=== PATIENT | male | born 1950 ===

== ENCOUNTER → 2021-11-28 | Outpatient (CLI) | payer MEDICARE, MEDICAID ==
[2021-11-28 14:20] VITALS: BP 89/50
== END | disposition home or self-care (01) ==
LOC: SRCNTR 14:00
PROVIDERS: ATTEND Internal Medicine
DX: I11.0 Hypertensive heart disease with heart failure (principal); I50.22 Chronic systolic (congestive) heart failure; I42.9 Cardiomyopathy, unspecified; I47.2 Ventricular tachycardia; I44.7 Left bundle-branch block, unspecified; F03.90 Unspecified dementia, unspecified severity, without behavioral disturbance, psychotic disturbance, mood disturbance, and anxiety; Z86.73 Personal history of transient ischemic attack (TIA), and cerebral infarction without residual deficits; R94.31 Abnormal electrocardiogram [ECG] [EKG]; Z79.899 Other long term (current) drug therapy; Z79.82 Long term (current) use of aspirin
CPT/HCPCS: 93005; G0463

== ENCOUNTER → 2021-12-01 | Outpatient (CLI) | payer MEDICARE, MEDICAID | END | disposition home or self-care (01) | LOC: RADPV 10:32 | PROVIDERS: ATTEND Internal Medicine | DX: I42.9 Cardiomyopathy, unspecified (principal); I08.3 Combined rheumatic disorders of mitral, aortic and tricuspid valves; I50.33 Acute on chronic diastolic (congestive) heart failure | CPT/HCPCS: 93306 ==